=== PATIENT | female | born 1970 | race Asian ===

== ENCOUNTER 2021-08-13 03:19 | Emergency (ER) | payer OTHER ==
[~2021-08-13] VITALS: Ht 157.5 cm; Wt 55.0 kg
[2021-08-13 04:27] LABS: BASOPHILS % 0.7 % (0.0-2.0); HEMATOCRIT. 33.2 % (36.0-48.0); HEMOGLOBIN. 10.5 g/dL (12.0-16.0); LYMPHOCYTES % 22.4 % (20.0-50.0); MEAN CORPUSCULAR HEMOGLOBIN 25.8 pg (28.0-32.0); MEAN CORPUSCULAR VOLUME 81.6 fL (81.0-99.0); MEAN PLATELET VOLUME 7.2 fl (7.4-10.4); NEUTROPHILS % 71.9 % (40.0-76.0); PLATELET 322 x1000/uL (130-400); RED BLOOD CELL COUNT 4.07 mill/uL (4.2-5.4)
[2021-08-13 04:30] LABS: CHLORIDE 102 mEq/L (98-107)
[2021-08-13] MEDS ORDERED: SODIUM CHLORIDE 0.9% 1,000 ML IV ONE (04:45)
[2021-08-13 06:04] VITALS: BP 147/55
== END 2021-08-13 07:14 | disposition home or self-care (01) ==
LOC: ER 03:19
DX: R55 Syncope and collapse (principal); T40.2X1A Poisoning by other opioids, accidental (unintentional), initial encounter; Y92.89 Other specified places as the place of occurrence of the external cause; E11.9 Type 2 diabetes mellitus without complications; E78.00 Pure hypercholesterolemia, unspecified; I10 Essential (primary) hypertension
CPT/HCPCS: 36415; 71045; 80053; 83880; 84484; 85025; 93005; 99285; J7030